=== PATIENT | female | born 1960 | race Caucasian/White ===

== ENCOUNTER 2016-06-23 01:16 | Emergency (ER) | payer OTHER ==
[~2016-06-23] VITALS: Ht 170.2 cm; Wt 83.9 kg
[~2016-06-23 01:16] MED LIST: GABA-585 PO; METO25TA9 PO; SERT25TA PO
[2016-06-23] MEDS ORDERED: IV NORMAL SALINE 1000ML BAG 1,000 ML IV SCH (01:30)
[2016-06-23] MEDS: MORPHINE SULFATE 4 MG/ML DISP.SYRIN. IV/SQ PRN ×2 (01:47→02:14)
[2016-06-23] MEDS ORDERED: PROPOFOL 20 ML IV ONE (02:00)
[2016-06-23] MEDS ORDERED: ONDANSETRON PF 4 MG/2 ML VIAL. IV ONE (02:00)
--- NOTE | 2016-06-23 02:42 | PHYS DOC ---
Past Medical History Past Medical History: Hypertension Additional Past Medical Histor: MS Smoking: Cigarettes Alcohol Use: Heavy Adult General Chief Complaint Chief Complaint: MECHANICAL FALL HPI HPI Patient is a 56 year old female who presents with left shoulder injury. Patient states that she suffered injury after falling out of her chair at home onto the kitchen floor. Patient states that she was washing dishes at the time of the accident when she slipped out of her chair. Patient states that she has severe 10 out of 10 pain in her left arm and feels like she may have dislocated her arm. Patient denies loss of feeling in her left hand. Patient has not taken any medications for her symptoms at home, however patient to come in by EMS and was given 100 g of fentanyl prior to arrival. Patient states that despite the pain medication she is still having severe pain. Patient states she is unable to move her left upper extremity as it feels out of place. Review of Systems Review of Systems Constitutional: Denies fever or chills [] Eyes: Denies change in visual acuity, redness, or eye pain [] HENT: Denies nasal congestion or sore throat [] Respiratory: Denies cough or shortness of breath [] Cardiovascular: Denies chest pain or edema [] GI: Denies abdominal pain, nausea, vomiting, bloody stools or diarrhea [] : Denies dysuria or hematuria [] Musculoskeletal: Left shoulder pain [] Integument: Denies rash or skin lesions [] Neurologic: Denies headache, focal weakness or sensory changes [] Current Medications Current Medications Current Medications Medications (Trade) Dose Ordered Sig/Trevor Start Time Stop Time Status Last Admin Dose Admin Morphine Sulfate 4 mg 4 mg PRN Q15MIN PRN 06/23/16 01:30 06/24/16 01:29 06/23/16 02:14 4 MG Ondansetron HCl (Zofran) 4 mg 1X ONCE 06/23/16 02:00 06/23/16 02:01 DC 06/23/16 01:48 4 MG Propofol (Diprivan) 20 ml @ 0 mls/hr 1X ONCE 06/23/16 02:00 06/23/16 02:01 DC 06/23/16 02:16 0 MLS/HR Sodium Chloride (Iv Sodium Chloride 0.9% 1000ml Bag) 1,000 ml @ 1,000 mls/hr Q1H 06/23/16 01:30 06/23/16 02:29 DC 06/23/16 01:30 1,000 MLS/HR Allergies Allergies Allergies Coded Allergies Type Severity Reaction Last Updated Verified No Known Drug Allergies 11/05/13 No Physical Exam Physical Exam Constitutional: Alert, afebrile, appears in severe discomfort. [] HENT: Normocephalic, atraumatic, bilateral external ears normal, oropharynx moist, no oral exudates, nose normal. [] Eyes: PERRLA, EOMI, conjunctiva normal, no discharge. [] Neck: Normal range of motion, no tenderness, supple, no stridor. [] Cardiovascular:Heart rate regular rhythm, no murmur [] Lungs & Thorax: Bilateral breath sounds clear to auscultation [] Abdomen: Bowel sounds normal, soft, no tenderness, no masses, no pulsatile masses. [] Skin: Warm, dry, no erythema, no rash. [] Back: No tenderness, no CVA tenderness. [] Extremities: Left anterior shoulder deformity, severe tenderness to palpation along anterior and lateral shoulder, range of motion not tested secondary to pain, sensation intact distal to injury, pulses 2+. [] Neurologic: Alert and oriented X 3, normal motor function, normal sensory function, no focal deficits noted. [] Current Patient Data Vital Signs Vital Signs Date Time Temp Pulse Resp B/P Pulse Ox O2 Delivery O2 Flow Rate FiO2 06/23/16 02:14 30 06/23/16 01:45 98.7 85 175/91 97 Room Air 98.7 EKG EKG Not performed [] Radiology/Procedures Radiology/Procedures Two-view left humerus x-ray interpreted by me: Anterior humeral head dislocation , humeral head fracture 2 view left shoulder x-ray interpreted by me: Left humeral head fracture, anterior shoulder dislocation [] Course & Med Decision Making Course & Med Decision Making Pertinent Labs and Imaging studies reviewed. (See chart for details) The patient's left shoulder was reduced as outlined in the procedure note. On reevaluation, patient states that she feels much better at this time. Patient's left upper extremity was placed in a shoulder immobilizer. The patient will be referred to Dr. Blank for follow-up in the next 5-7 days. Advised return emergency department for any worsening symptoms. Patient voiced understanding and in agreement with treatment plan. Dragon Disclaimer Dragon Disclaimer This electronic medical record was generated, in whole or in part, using a voice recognition dictation system. Joint Reduction Procedure Joint Indication: Left shoulder dislocation Consent: Consent was obtained. Procedure: The pre-reduction exam showed distal perfusion and neurologic function to be normal.. The patient was placed in the appropriate position. Anesthesia/pain control was achieved conscious sedation. Reduction of the left shoulder was performed by traction countertraction. Post reduction films were obtained and revealed satisfactory reduction. A post-reduction exam revealed distal perfusion and neurologic function to be normal. The affected area was immobilized with a shoulder immobilizer. The patient tolerated the procedure well. Complications: none. Procedural Sedation Proc Sed Indication: Left shoulder dislocation Consent: I have discussed with the patient and/or the patient pharmaceutical specialty representative the indication, alternatives, and the possible risks and /or complications of the planned procedure and the anesthesia methods. The patient and/or patient pharmaceutical specialty representative appear to understand and agree to proceed. Pre-Sedation Documentation and Exam: Her history of present illness Airway Assessment: normal. Prior History of Anesthesia Complications: none. ASA Classification: 3 Sedation/ Anesthesia Plan: Propofol titrated to effect Medications Used: see nursing notes. Monitoring and Safety: The patient was placed on a conveyor monitor and vital signs, pulse oximetry and level of consciousness were continuously evaluated throughout the procedure. Patient was given first dose of propofol at 0223. The patient was closely monitored until recovery from the medications was complete and the patient had returned to baseline status. Patient returned to baseline mental status at 0256. Respiratory therapy was on standby at all times during the procedure. (The following sections must be completed) Post-Sedation Vital Signs: [EDM.VS] Post-Sedation Exam: Returned to baseline, left shoulder successfully reduced Complications: none. Departure Departure Impression: Primary Impression: Dislocation of left shoulder joint Additional Impression: Humerus head fracture Disposition: HOME, SELF-CARE Condition: IMPROVED Referrals: AMITA SANTIAGO (PCP) AURORA BLANK MD Patient Instructions: Shoulder Dislocation, Shoulder Fracture (Proximal Humerus or Glenoid)-[facility] Additional Instructions: Follow-up with Dr. Blank in one week. Return to the emergency department for any worsening symptoms. Scripts Oxycodone/Apap 5-325 (Percocet 5-325 Mg Tablet)1 Each Tablet1 Tab PO Q4-6HRS PRN PAIN #30 TAB Ref 0 Prov:STEWART VELEZ MD 06/23/16 Problem Qualifiers Primary Impression: Dislocation of left shoulder joint Encounter type: initial encounter Qualified Code: S43.005A - Unspecified dislocation of left shoulder joint, initial encounter Additional Impression: Humerus head fracture Encounter type: initial encounter Fracture type: closed Laterality: left Qualified Code: S42.292A - Other displaced fracture of upper end of left humerus, initial encounter for closed fracture STEWART VELEZ MD Jun 23, 2016 02:42
[2016-06-23] MEDS ORDERED: OXYC-323 PO (03:00)
[2016-06-23 03:05] VITALS: BP 167/95
--- NOTE | 2016-06-23 07:32 | RAD ---
Indication injury, pain. AP and lateral views of the left humerus were obtained. There is an anterior dislocation at the shoulder. There are additional fracture fragments noted off the head of the humerus. IMPRESSION: Fracture dislocation left shoulder
--- NOTE | 2016-06-23 07:33 | RAD ---
Indication injury, pain. AP and Y views of the left shoulder were obtained. There is an anterior subcoracoid dislocation. There are avulsed from a fracture fragments noted off the humeral head. IMPRESSION: Fracture dislocation left shoulder
--- NOTE | 2016-06-23 07:34 | RAD ---
Indication post reduction. AP and Y views of the left shoulder were obtained and are compared to a study approximately 1 hour earlier. There is been interval reduction of previously identified anterior dislocation. Fracture fragments, off the humeral head, seen on the initial films are not well represented on the postreduction images IMPRESSION: Interval reduction
== END 2016-06-23 03:19 | disposition home or self-care (01) ==
LOC: ER 01:16
DX: S42.292A Other displaced fracture of upper end of left humerus, initial encounter for closed fracture (principal); I10 Essential (primary) hypertension; F17.210 Nicotine dependence, cigarettes, uncomplicated; I05.0 Rheumatic mitral stenosis; F10.10 Alcohol abuse, uncomplicated; Y90.9 Presence of alcohol in blood, level not specified; W17.89XA Other fall from one level to another, initial encounter; Y93.89 Activity, other specified; Y92.89 Other specified places as the place of occurrence of the external cause; Y99.8 Other external cause status
CPT/HCPCS: 23650; 73030; 73060; 96361; 96374; 96375; 96376; 99285; J2270; J2405; J2704; J7030

== ENCOUNTER → 2016-06-29 | Outpatient (CLI) | payer OTHER, MEDICARE ==
[2016-06-23 03:05] VITALS: BP 167/95
[~2016-06-29] MED LIST changes: +OXYC-323 PO
--- NOTE | 2016-06-29 12:07 | KCIC ---
PROCEDURE MR of the left shoulder HISTORY Trauma. Nondisplaced proximal humerus fracture. Fell 1 week ago. COMPARISON No previous MRI. TECHNIQUE Standard multiplanar sequences are obtained. FINDINGS The acromioclavicular joint is mildly degenerative. No evidence of separation or acute coracoclavicular ligament disruption. Comminuted fracture of the greater tuberosity. Mild elevation of the subtendinous fragment. There is some heterogeneous hemorrhagic or fluid signal at the fracture defect with adjacent bone marrow edema. The supraspinatus and infraspinatus tendon attachments remain intact and attached to the elevated fragment. There is diffuse rotator cuff tendinosis but no rupture of the tendon itself. Mild subdeltoid bursal fluid. There is small glenohumeral joint effusion. Heterogeneous signal within the superior labrum compatible with degeneration but no clear-cut detachment. The biceps tendon is intact. Soft tissue edema/hemorrhage along the anterior shoulder and to lesser extent at the posterior shoulder. The inferior glenohumeral ligaments are poorly defined and thickened with some possible discontinuity. IMPRESSION 1. Greater tuberosity fracture with mild elevation of the shelf. 2. Generalized rotator cuff tendinosis without complete rupture or retraction. 3. Superior labral degeneration. 4. Question inferior glenohumeral ligament tear. Electronically signed by: Jigar George MD (Jun 29, 2016 12:00:51)
== END | disposition home or self-care (01) ==
LOC: KCIC MRI 08:15
PROVIDERS: ATTEND Nurse Practitioner Gerontology
DX: S42.202D Unspecified fracture of upper end of left humerus, subsequent encounter for fracture with routine healing (principal)
CPT/HCPCS: 73221